=== PATIENT | female | born 1985 | race Caucasian/White ===

== ENCOUNTER → 2020-05-17 20:20 | Observation (INO) ==
[2020-05-17 18:17] LABS: Basophils % 0.4 %; Eosinophils # 0.2 K/mcL (0.0-0.6); Hemoglobin 11.1 g/dL (11.5-15.4); Immature Granulocytes % 0.7 % (0-4); Immature Platelets 17.1 % (1.1-6.1); Lymphocytes # 2.2 K/mcL (0.6-4.6); Lymphocytes % 26.2 %; Mean Corpuscular HGB Conc 32.6 g/dL (31.6-35.5); Mean Corpuscular Hemoglobin 31.9 pg (28.0-33.3); Mean Corpuscular Volume 97.7 fL (83.0-100.0); Mean Platelet Volume 13.7 fL (9.4-12.4); Monocytes # 0.8 K/mcL (0.0-1.3); Neutrophils # 5.3 K/mcL (1.6-8.9); Platelet Count 132 K/mcL (140-400); Red Blood Count 3.48 M/mcL (3.82-4.97); Red Cell Distribution Width 12.3 % (11.5-14.5); Segmented Neutrophils % 61.7 %; White Blood Count 8.5 K/mcL (4.3-11.1)
[2020-05-17 18:35] LABS: Alanine Aminotransferase 10 Units/L (7-52); Aspartate Amino Transferase 20 Units/L (13-39); BUN/Creatinine Ratio 17 (6-26); Blood Urea Nitrogen 16 mg/dL (6-20); Lactate Dehydrogenase 174 Units/L (140-271); Uric Acid 4.8 mg/dL (2.3-7.6); eGFR For African Americans > 60 (> 60); eGFR For Non-African Americans > 60 (> 60)
[2020-05-17 19:04] LABS: Protein/Creatinine Ratio,Urine 0.25 mg/mg (0.00-0.20)
== END | disposition home or self-care (01) ==
LOC: 1NENULAB
PROVIDERS: ADMIT Advanced Practice Midwife; ATTEND Advanced Practice Midwife

== ENCOUNTER 2020-05-21 11:10 | Inpatient (IN) ==
[~2020-05-21 11:10] MED LIST: *HR* Nalbuphine 10 MG/ML AMPUL IV PRN; Azithromycin 500 MG in 0.9 % Sodium Chloride 250 ML IVPB PRN; Famotidine 20 MG/2 ML VIAL IVP PRN; Lidocaine 1% 20 ML MDV INFILT PRN; Metoclopramide 10 MG/2 ML VIAL IVP PRN; Naloxone 0.4 MG/ML INJ IVP PRN
[2020-05-21 12:25] LABS: Basophils % 0.4 %; Eosinophils % 1.7 %; Immature Granulocytes % 0.5 % (0-4); Mean Corpuscular HGB Conc 33.4 g/dL (31.6-35.5)
[2020-05-21 12:27] LABS: Eosinophils # 0.1 K/mcL (0.0-0.6); Hematocrit 36.2 % (35.3-44.9); Hemoglobin 12.1 g/dL (11.5-15.4); Immature Platelets 18.2 % (1.1-6.1); Lymphocytes # 1.7 K/mcL (0.6-4.6); Lymphocytes % 21.6 %; Mean Corpuscular Hemoglobin 32.6 pg (28.0-33.3); Mean Corpuscular Volume 97.6 fL (83.0-100.0); Mean Platelet Volume 14.1 fL (9.4-12.4); Monocytes # 0.5 K/mcL (0.0-1.3); Monocytes % 6.2 %; Neutrophils # 5.4 K/mcL (1.6-8.9); Platelet Count 146 K/mcL (140-400); Red Blood Count 3.71 M/mcL (3.82-4.97); Red Cell Distribution Width 12.4 % (11.5-14.5); Segmented Neutrophils % 69.6 %; White Blood Count 7.8 K/mcL (4.3-11.1)
[2020-05-21 12:34] LABS: Bilirubin,Urine Negative (Negative); Blood,Urine Negative (Negative); Clarity,Urine Turbid (Clear); Color,Urine Yellow (Yellow); Glucose,Urine (UA) Normal (Normal); Ketones,Urine Negative (Negative); Protein,Urine 50 mg/dL (Neg-Trace); Specific Gravity,Urine 1.028 (1.010-1.025)
[2020-05-21 12:35] LABS: Leukocyte Esterase,Urine Moderate (Negative); Nitrite,Urine Negative (Negative); Urobilinogen,Urine Normal (Normal)
[2020-05-21 12:41] LABS: Bacteria,Urine Few per hpf (None-Few); Mucus,Urine Few per lpf (None-Few); RBC,Urine 0-3 per hpf (0-3); Squamous Epithelial Cell,Urine Moderate per hpf (None-Few)
[2020-05-21 13:11] LABS: Protein/Creatinine Ratio,Urine 0.24 mg/mg (0.00-0.20)
[2020-05-21 13:12] LABS: Amphetamine Screen,Urine Negative ng/mL (Cutoff=1000); Barbiturate Screen,Urine Negative ng/mL (Cutoff=200); Benzodiazepines Screen,Urine Negative ng/mL (Cutoff=200); Cannabinoid Screen,Urine Negative ng/mL (Cutoff = 50); Cocaine Screen,Urine Negative ng/mL (Cutoff= 300); Opiate Screen,Urine Negative ng/mL (Cutoff=300); Phencyclidine Screen,Urine Negative ng/mL (Cutoff=25)
[2020-05-21] MEDS ORDERED: Penicillin G Potassium 5,000,000 UNIT in 0.9 % Sodium Chloride Mini Bag 100 ML IVPB ONE (13:39)
[2020-05-21] MEDS ORDERED: miSOPROStoL 25 MCG TABLET PO PRN (13:40)
[2020-05-21] MEDS ORDERED: Oxytocin 20 units/ LR 1000 mL 20 UNIT/1,000 ML BAG IVC SCH (13:45)
[2020-05-21] MEDS: Ringers Solution, Lactated 1,000 ML IVC SCH (14:12)
[2020-05-21 17:30] LABS: Influenza A PCR Negative (Negative); Influenza B PCR Negative (Negative); Resp. Syncytial Virus PCR Negative (Negative)
[2020-05-21 17:32] LABS: SARS-CoV-2 by PCR (In House) Negative (Negative)
[2020-05-21] MEDS: Penicillin G Potassium 2,500,000 UNIT in 0.9 % Sodium Chloride 100 ML IVPB SCH ×2 (19:23→23:21)
[2020-05-21] MEDS ORDERED: *HR* FentaNYL (PF) 100 MCG/2 ML VIAL EP ONE (20:33)
[2020-05-21] MEDS ORDERED: EPHEDrine 50 MG/ML VIAL IVP PRN (20:33)
[2020-05-21] MEDS ORDERED: Ropivacaine/PF 0.2% 20 ML VIAL EP ONE (20:33)
[2020-05-21] MEDS ORDERED: Epidural Premix (fent/bupiv) 110 ML EP ONE (20:39)
[2020-05-21] MEDS ORDERED: Calcium Gluconate 1,000 MG/10 ML VIAL IVP PRN (22:10)
[2020-05-21] MEDS ORDERED: Magnesium Sulf 20 gm/SW 500mL 20 GM/500 ML IV.SOLN IVC SCH (22:15)
[2020-05-21 23:09] LABS: Alanine Aminotransferase 10 Units/L (7-52)
[2020-05-21] MEDS ORDERED: *HR* Labetalol 20 MG/4 ML SYRINGE IVP STA (23:34)
[2020-05-21] MEDS ORDERED: *HR* Labetalol 20 MG/4 ML SYRINGE IVP ONE (23:36)
[2020-05-22] MEDS ORDERED: Acetaminophen 325 MG TABLET PO ONE ×2 (00:39→10:15)
[2020-05-22] MEDS: Epidural Premix (fent/bupiv) 110 ML EP SCH ×2 (03:25→10:03)
[2020-05-22] MEDS: Penicillin G Potassium 2,500,000 UNIT in 0.9 % Sodium Chloride 100 ML IVPB SCH ×3 (03:30→11:41)
[2020-05-22] MEDS: Ondansetron 4 MG/2 ML VIAL IVP PRN ×2 (05:09→09:49)
[2020-05-22] MEDS ORDERED: Famotidine 20 MG/2 ML VIAL IVP ONE (05:26)
[2020-05-22] MEDS: Ringers Solution, Lactated 1,000 ML IVC SCH (06:37)
[2020-05-22] MEDS ORDERED: miSOPROStoL 100 MCG TABLET RC ONE (12:24)
[2020-05-22 15:09] LABS: Aspartate Amino Transferase 21 Units/L (13-39); BUN/Creatinine Ratio 16 (6-26); Blood Urea Nitrogen 11 mg/dL (6-20); Lactate Dehydrogenase 173 Units/L (140-271); Uric Acid 4.3 mg/dL (2.3-7.6); eGFR For African Americans > 60 (> 60); eGFR For Non-African Americans > 60 (> 60)
[2020-05-22] MEDS ORDERED: Oxytocin 20 units/ LR 1000 mL 20 UNIT/1,000 ML BAG IVC ONE (17:08)
[2020-05-22] MEDS ORDERED: Rho Immune Globulin 1,500 UNIT SYRINGE IM PRN (17:08)
[2020-05-22] MEDS ORDERED: Acetaminophen 325 MG TABLET PO PRN (17:08)
[2020-05-22] MEDS ORDERED: Benzocaine/Menthol 56 GM AEROSOL SPRAY TP PRN (17:08)
[2020-05-22] MEDS ORDERED: Oxytocin 20 units/ LR 1000 mL 20 UNIT/1,000 ML BAG IVC SCH (17:08)
[2020-05-22] MEDS ORDERED: Measles/Mumps/Rubella Vacc 0.5 ML VIAL SQ PRN (17:08)
[2020-05-22] MEDS ORDERED: Calcium Gluconate 1,000 MG/10 ML VIAL ONE (17:52)
[2020-05-22 18:45] LABS: Basophils % 0.1 %; Immature Granulocytes % 0.7 % (0-4); Mean Corpuscular Volume 97.5 fL (83.0-100.0); Segmented Neutrophils % 88.3 %
[2020-05-22 18:47] LABS: Hematocrit 27.5 % (35.3-44.9); Hemoglobin 9.2 g/dL (11.5-15.4); Immature Platelets 19.3 % (1.1-6.1); Lymphocytes % 5.1 %; Mean Corpuscular HGB Conc 33.5 g/dL (31.6-35.5); Mean Corpuscular Hemoglobin 32.6 pg (28.0-33.3); Mean Platelet Volume 13.6 fL (9.4-12.4); Monocytes # 1.3 K/mcL (0.0-1.3); Monocytes % 5.8 %; Neutrophils # 19.9 K/mcL (1.6-8.9); Platelet Count 130 K/mcL (140-400); Red Blood Count 2.82 M/mcL (3.82-4.97); Red Cell Distribution Width 12.5 % (11.5-14.5); White Blood Count 22.5 K/mcL (4.3-11.1)
[2020-05-22 18:48] LABS: Lymphocytes # 1.2 K/mcL (0.6-4.6)
[2020-05-22] MEDS: Ibuprofen 600 MG TABLET PO PRN (19:49)
[2020-05-22] MEDS: Magnesium Sulf 20 gm/SW 500mL 20 GM/500 ML IV.SOLN IVC SCH (19:49)
[2020-05-23] MEDS: Magnesium Sulf 20 gm/SW 500mL 20 GM/500 ML IV.SOLN IVC SCH (02:51)
[2020-05-23 07:25] LABS: Basophils % 0.2 %; Eosinophils # 0.1 K/mcL (0.0-0.6); Eosinophils % 0.4 %; Hematocrit 26.4 % (35.3-44.9); Hemoglobin 8.7 g/dL (11.5-15.4); Immature Granulocytes % 0.6 % (0-4); Immature Platelets 15.1 % (1.1-6.1); Lymphocytes # 2.1 K/mcL (0.6-4.6); Mean Corpuscular Hemoglobin 32.8 pg (28.0-33.3); Mean Corpuscular Volume 99.6 fL (83.0-100.0); Mean Platelet Volume 13.3 fL (9.4-12.4); Monocytes % 5.8 %; Platelet Count 139 K/mcL (140-400); Red Blood Count 2.65 M/mcL (3.82-4.97); Red Cell Distribution Width 12.6 % (11.5-14.5); White Blood Count 17.5 K/mcL (4.3-11.1)
[2020-05-23 07:29] LABS: Neutrophils # 14.2 K/mcL (1.6-8.9)
[2020-05-23] MEDS: Ibuprofen 600 MG TABLET PO PRN ×2 (07:38→17:07)
[2020-05-23] MEDS: Prenatal Vit/FA 1 EACH TABLET PO SCH (07:38)
[2020-05-23] MEDS ORDERED: Calcium Gluconate 1,000 MG/10 ML VIAL ONE (10:39)
[2020-05-23 16:28] LABS: Basophils % 0.2 %; Eosinophils # 0.1 K/mcL (0.0-0.6); Eosinophils % 0.7 %; Hematocrit 25.2 % (35.3-44.9); Hemoglobin 8.3 g/dL (11.5-15.4); Immature Granulocytes % 0.7 % (0-4); Lymphocytes # 2.1 K/mcL (0.6-4.6); Lymphocytes % 11.6 %; Mean Corpuscular HGB Conc 32.9 g/dL (31.6-35.5); Mean Corpuscular Hemoglobin 33.2 pg (28.0-33.3); Mean Corpuscular Volume 100.8 fL (83.0-100.0); Monocytes # 0.8 K/mcL (0.0-1.3); Monocytes % 4.4 %; Platelet Count 139 K/mcL (140-400); Red Cell Distribution Width 12.9 % (11.5-14.5); Segmented Neutrophils % 82.4 %; White Blood Count 18.2 K/mcL (4.3-11.1)
[2020-05-24] MEDS: Ibuprofen 600 MG TABLET PO PRN (09:12)
[2020-05-24] MEDS: Prenatal Vit/FA 1 EACH TABLET PO SCH (09:12)
[2020-05-24 09:31] VITALS: BP 124/74
== END 2020-05-24 12:35 | disposition home or self-care (01) | DRG 768 ==
LOC: 1NENULAB → 1NENUOBS 05-22 17:26
PROVIDERS: ADMIT Obstetrics & Gynecology; ATTEND Obstetrics & Gynecology

== ENCOUNTER 2021-09-25 08:15 | Inpatient (IN) ==
[2021-09-25] MEDS ORDERED: Lidocaine 1% 20 ML MDV INFILT PRN (08:39)
[2021-09-25] MEDS ORDERED: *HR* Nalbuphine 10 MG/ML AMPUL IV PRN (08:39)
[2021-09-25] MEDS ORDERED: Ondansetron 4 MG/2 ML VIAL IVP PRN (08:39)
[2021-09-25] MEDS ORDERED: Metoclopramide 10 MG/2 ML VIAL IVP PRN (08:39)
[2021-09-25] MEDS ORDERED: Azithromycin 500 MG in 0.9 % Sodium Chloride 250 ML IVPB PRN (08:39)
[2021-09-25] MEDS ORDERED: Famotidine 20 MG/2 ML VIAL IVP PRN (08:39)
[2021-09-25 09:04] LABS: Mean Corpuscular Volume 93.6 fL (83.0-100.0)
[2021-09-25 09:06] LABS: Basophils % 0.1 %; Eosinophils # 0.3 K/mcL (0.0-0.6); Eosinophils % 3.7 %; Hematocrit 38.2 % (35.3-44.9); Hemoglobin 12.5 g/dL (11.5-15.4); Immature Granulocytes % 0.4 % (0-4); Immature Platelets 15.3 % (1.1-6.1); Lymphocytes # 2.1 K/mcL (0.6-4.6); Lymphocytes % 27.3 %; Mean Corpuscular HGB Conc 32.7 g/dL (31.6-35.5); Mean Corpuscular Hemoglobin 30.6 pg (28.0-33.3); Mean Platelet Volume 13.3 fL (9.4-12.4); Monocytes # 0.4 K/mcL (0.0-1.3); Monocytes % 4.6 %; Platelet Count 157 K/mcL (140-400); Red Blood Count 4.08 M/mcL (3.82-4.97); Red Cell Distribution Width 12.9 % (11.5-14.5); Segmented Neutrophils % 63.9 %; White Blood Count 7.6 K/mcL (4.3-11.1)
[2021-09-25 09:10] LABS: Neutrophils # 4.9 K/mcL (1.6-8.9)
[2021-09-25 09:11] LABS: Amphetamine Screen,Urine Negative ng/mL (Cutoff=1000); Barbiturate Screen,Urine Negative ng/mL (Cutoff=200); Benzodiazepines Screen,Urine Negative ng/mL (Cutoff=200); Cannabinoid Screen,Urine Negative ng/mL (Cutoff = 50); Cocaine Screen,Urine Negative ng/mL (Cutoff= 300); Opiate Screen,Urine Negative ng/mL (Cutoff=300); Phencyclidine Screen,Urine Negative ng/mL (Cutoff=25)
[2021-09-25] MEDS ORDERED: EPHEDrine 50 MG/ML VIAL IVP PRN (09:21)
[2021-09-25] MEDS ORDERED: Epidural Premix (fent/bupiv) 110 ML EP SCH (09:30)
[2021-09-25] MEDS ORDERED: Oxytocin 30 UNIT/503 ML BAG IVC SCH (10:00)
[2021-09-25] MEDS ORDERED: Penicillin G Potassium 5,000,000 UNIT in 0.9 % Sodium Chloride Mini Bag 100 ML IVPB ONE (10:04)
[2021-09-25] MEDS: Ringers Solution, Lactated 1,000 ML IVC SCH ×2 (10:14→18:38)
[2021-09-25] MEDS: Penicillin G Potassium 2,500,000 UNIT/105 ML MLS IVPB SCH ×3 (14:22→18:36)
[2021-09-26] MEDS ORDERED: Rho Immune Globulin 1,500 UNIT SYRINGE IM PRN (01:13)
[2021-09-26] MEDS ORDERED: Benzocaine/Menthol 56 GM AEROSOL SPRAY TP PRN (01:13)
[2021-09-26] MEDS ORDERED: Oxytocin 30 UNIT/503 ML BAG IVC SCH (01:13)
[2021-09-26] MEDS ORDERED: OXYTOCIN/RINGERS LACTATE 10 UNIT/166.6 ML BAG IVC ONE (01:13)
[2021-09-26] MEDS ORDERED: Ondansetron ODT 4 MG TAB.RAPDIS SL PRN (01:13)
[2021-09-26] MEDS ORDERED: Lanolin 7 G OINT...G. TP PRN (01:13)
[2021-09-26] MEDS ORDERED: Measles/Mumps/Rubella Vacc 0.5 ML VIAL SQ PRN (01:13)
[2021-09-26] MEDS: Ibuprofen 600 MG TABLET PO SCH ×4 (01:25→21:44)
[2021-09-26 06:39] VITALS: BP 131/85; PULSE 75; TEMP 98.1; O2SAT 98
[2021-09-26] MEDS ORDERED: Prenatal Vit/FA 1 EACH TABLET PO SCH (09:00)
[2021-09-26] MEDS: Acetaminophen 325 MG TABLET PO SCH ×3 (09:21→21:44)
[2021-09-26 13:47] LABS: Eosinophils # 0.3 K/mcL (0.0-0.6); Eosinophils % 2.7 %; Lymphocytes # 1.6 K/mcL (0.6-4.6); Lymphocytes % 16.1 %
[2021-09-26 13:49] LABS: Basophils % 0.2 %; Hematocrit 35.7 % (35.3-44.9); Hemoglobin 11.8 g/dL (11.5-15.4); Immature Granulocytes % 0.5 % (0-4); Immature Platelets 14.2 % (1.1-6.1); Mean Corpuscular HGB Conc 33.1 g/dL (31.6-35.5); Mean Corpuscular Hemoglobin 31.4 pg (28.0-33.3); Mean Corpuscular Volume 94.9 fL (83.0-100.0); Mean Platelet Volume 13.2 fL (9.4-12.4); Monocytes # 0.5 K/mcL (0.0-1.3); Monocytes % 5.2 %; Neutrophils # 7.5 K/mcL (1.6-8.9); Platelet Count 147 K/mcL (140-400); Red Blood Count 3.76 M/mcL (3.82-4.97); Red Cell Distribution Width 13.2 % (11.5-14.5); Segmented Neutrophils % 75.3 %
== END 2021-09-27 00:23 | disposition home or self-care (01) | DRG 807 ==
LOC: 1NENULAB 08:15 → 1NENUOBS 09-26 01:11
PROVIDERS: ADMIT Obstetrics & Gynecology; ATTEND Obstetrics & Gynecology